=== PATIENT | female | born 1990 | race African-American/Black ===

== ENCOUNTER 2016-10-01 07:16 | Emergency (ER) | payer BC, OTHER ==
[~2016-10-01] VITALS: Ht 160 cm; Wt 72.6 kg
[~2016-10-01 07:16] MED LIST: METH-37 PO; TRAM-29 PO
[2016-10-01 07:32] VITALS: BP 127/86
[2016-10-01] MEDS ORDERED: PRED10DR RIGHTEYE (07:59)
--- NOTE | 2016-10-01 07:59 | PHYS DOC ---
Past Medical History Past Medical History: No Pertinent History Past Surgical History: No Surgical History Alcohol Use: Occasionally Drug Use: None Adult General Chief Complaint Chief Complaint: EYE PROBLEMS HPI HPI 25-year-old female who states she had some right-sided eye pain and irritation after she used a new contact solution coach cleaner that had some peroxide solution and then yesterday around 3 PM. She then washed out multiple times throughout the day and awoke today with some mild drainage and still pain to her right eye. She states she has normal vision in her right eye that is using glasses now as her contacts hurt her eye. She denies any other complaints at this time. Review of Systems Review of Systems Constitutional: Denies fever or chills [] Eyes: Denies change in visual acuity, has redness, has eye pain [] HENT: Denies nasal congestion or sore throat [] Respiratory: Denies cough or shortness of breath [] Cardiovascular: No additional information not addressed in HPI [] GI: Denies abdominal pain, nausea, vomiting, bloody stools or diarrhea [] : Denies dysuria or hematuria [] Musculoskeletal: Denies back pain or joint pain [] Integument: Denies rash or skin lesions [] Neurologic: Denies headache, focal weakness or sensory changes [] Endocrine: Denies polyuria or polydipsia [] Current Medications Current Medications Current Medications Medications (Trade) Dose Ordered Sig/Amaury Start Time Stop Time Status Last Admin Dose Admin Tetracaine HCl (Tetracaine) 40 drop STK-MED ONCE 10/01/16 08:16 10/01/16 08:17 DC Allergies Allergies Allergies Coded Allergies Type Severity Reaction Last Updated Verified No Known Drug Allergies 11/20/15 No Physical Exam Physical Exam Constitutional: Well developed, well nourished, no acute distress, non-toxic appearance. [] HENT: Normocephalic, atraumatic, bilateral external ears normal, oropharynx moist, no oral exudates, nose normal. [] Eyes: PERRLA, EOMI, right sided conjunctiva appears irritated consistent with a conjunctivitis, no discharge. [] Neck: Normal range of motion, no tenderness, supple, no stridor. [] Cardiovascular:Heart rate regular rhythm, no murmur [] Lungs & Thorax: Bilateral breath sounds clear to auscultation [] Abdomen: Bowel sounds normal, soft, no tenderness, no masses, no pulsatile masses. [] Skin: Warm, dry, no erythema, no rash. [] Back: No tenderness, no CVA tenderness. [] Extremities: No tenderness, no cyanosis, no clubbing, ROM intact, no edema. [] Neurologic: Alert and oriented X 3, normal motor function, normal sensory function, no focal deficits noted. [] Psychologic: Affect normal, judgement normal, mood normal. [] Current Patient Data Vital Signs Vital Signs Date Time Temp Pulse Resp B/P Pulse Ox O2 Delivery O2 Flow Rate FiO2 10/01/16 07:32 97.8 67 16 98 Room Air 97.8 EKG EKG [] Radiology/Procedures Radiology/Procedures [] Course & Med Decision Making Course & Med Decision Making Pertinent Labs and Imaging studies reviewed. (See chart for details) 25-year-old female has physical exam findings consistent with a chemical conjunctivitis. Her visual acuity was normal. The pH of her eye was closed to 7.0 was checked on pH paper. Be prescribing her a course of steroid drops as well as saline drops for the next 5 days and instructing her to now her contact lenses for the next several days as well. Pt was complaining of significant eye pain and one drop of tetracaine was instilled in the eye with mild relief. She was discharged to follow up closely with an eye doctor in the next two days if her symptoms do not improve. Dragon Disclaimer Dragon Disclaimer This electronic medical record was generated, in whole or in part, using a voice recognition dictation system. Departure Departure Impression: Primary Impression: Chemical conjunctivitis of right eye Disposition: 01 HOME, SELF-CARE Admitting Physician: Other Condition: STABLE Referrals: VERITO HERRERA (PCP) Patient Instructions: Conjunctivitis, Chemical, [id number] Additional Instructions: Please use your drops as prescribed and discontinue contact lens use for the next several days. Continue to use warm compresses to the eye. Follow up with an eye doctor if your pain or redness persists for the next several days despite using drops. Scripts Eye Lubricant Combination No.1 (Freshkote)15 Ml Drops1 Drop RIGHTEYE TID #1 ML Ref 0 NS For 5 days Prov:ALIZA BENDER DO 10/01/16 Prednisolone Acetate (Omnipred)10 Ml Drops.susp1 Drop RIGHTEYE TID #1 ML Ref 1 Prov:ALIZA BENDER DO 10/01/16 ALIZA BENDER DO Oct 01, 2016 07:59
[2016-10-01] MEDS ORDERED: EYE15DRO RIGHTEYE (08:10)
[2016-10-01] MEDS ORDERED: TETRACAINE 0.5% OPHTH SOLUTION 4ML BOTTLE. ONE (08:16)
== END 2016-10-01 08:23 | disposition home or self-care (01) ==
LOC: ER 07:16
DX: H10.211 Acute toxic conjunctivitis, right eye (principal)
CPT/HCPCS: 99283

== ENCOUNTER 2018-07-21 13:21 | Emergency (ER) | payer SELFPAY ==
[~2018-07-21] VITALS: Ht 160 cm; Wt 67.1 kg
[~2018-07-21 13:21] MED LIST changes: +EYE15DRO RIGHTEYE; +PRED10DR RIGHTEYE; -TRAM-29 PO; +TRAM-48 PO
[2018-07-21 13:44] VITALS: BP 106/68
--- NOTE | 2018-07-21 14:26 | PHYS DOC ---
Past Medical History Past Medical History: Anxiety Past Surgical History: No Surgical History Alcohol Use: Occasionally Drug Use: None Adult General Chief Complaint Chief Complaint: BACK INJURY HPI HPI Patient is a 27 year old female presented to ER today for evaluation of back pain, rib pain on the left side after she fell down 12 steps 3 days ago while carrying grocery. She denies any head or neck injury, no loss of consciousness. Patient denies any bowel or bladder incontinence. Patient denies any numbness or weakness in her extremities. Patient said the pain getting worse so she came in today for evaluation. She denies any abdominal pain, no nausea vomiting. Review of Systems Review of Systems Constitutional: Denies fever or chills [] Eyes: Denies change in visual acuity, redness, or eye pain [] HENT: Denies nasal congestion or sore throat [] Respiratory: Denies cough or shortness of breath [] Cardiovascular: No additional information not addressed in HPI [] GI: Denies abdominal pain, nausea, vomiting, bloody stools or diarrhea [] : Denies dysuria or hematuria [] Musculoskeletal: positive for back pain no joint pain [] Integument: Denies rash or skin lesions [] Neurologic: Denies headache, focal weakness or sensory changes [] Endocrine: Denies polyuria or polydipsia [] All other systems were reviewed and found to be within normal limits, except as documented in this note. Current Medications Current Medications Current Medications Medications (Trade) Dose Ordered Sig/[facility] Start Time Stop Time Status Last Admin Dose Admin Acetaminophen/ Hydrocodone Bitart (Lortab 5/325) 2 tab 1X ONCE 07/21/18 14:30 07/21/18 14:31 DC 07/21/18 14:58 2 TAB Allergies Allergies Allergies Coded Allergies Type Severity Reaction Last Updated Verified No Known Drug Allergies 11/20/15 No Physical Exam Physical Exam Constitutional: Well developed, well nourished, no acute distress, non-toxic appearance. [] HENT: Normocephalic, atraumatic, bilateral external ears normal, oropharynx moist, no oral exudates, nose normal. [] Eyes: PERRLA, EOMI, conjunctiva normal, no discharge. [] Neck: Normal range of motion, no tenderness, supple, no stridor. [] Cardiovascular:Heart rate regular rhythm, no murmur [] Lungs & Thorax: Bilateral breath sounds clear to auscultation [] Abdomen: Bowel sounds normal, soft, no tenderness, no masses, no pulsatile masses. [] Skin: Warm, dry, no erythema, no rash. [] Back: tenderness on right side at L2/L3 AREA, T5/T7 AREA , NO BONY STEP OFF, no CVA tenderness. [] Extremities: No tenderness, no cyanosis, no clubbing, ROM intact, no edema. [] Neurologic: Alert and oriented X 3, normal motor function, normal sensory function, no focal deficits noted. [] Psychologic: Affect normal, judgement normal, mood normal. [] Current Patient Data Vital Signs Vital Signs Date Time Temp Pulse Resp B/P (MAP) Pulse Ox O2 Delivery O2 Flow Rate FiO2 07/21/18 14:58 16 99 Room Air 07/21/18 13:44 97.9 71 106/68 (81) 97.9 EKG EKG [] Radiology/Procedures Radiology/Procedures [] [address] [place] [address] IMAGING REPORT Signed PATIENT: SKY ESCOBEDO ACCOUNT: [id number] : 1990 LOCATION: ER AGE: 27 SEX: F EXAM STATUS: REG ER ORD. PHYSICIAN: TIEN RIBEIRO DO REASON: FELL DOWN 12 STAIRS 3 DAYS AGO, LANDED ON HER BACK, HAVING BACK PAIN. PROCEDURE: LUMBAR SPINE MIN 4V Thoracic spine, 3 views, 07/21/2018: HISTORY: Fall, pain There is a mild left convexity thoracic scoliosis. There is a slight superior endplate deformity at T6 which was not evident on the 11/12/2015 exam. The thoracic vertebral heights are otherwise well-maintained. The paraspinous soft tissues are unremarkable. IMPRESSION: Slight superior endplate deformity at T6 which is new since 11/12/2015. Lumbar spine, 5 views, 07/21/2018: The lumbar vertebral heights and intervertebral disc spaces are well-maintained. There is a slightly displaced fracture of the right transverse process at L3. Lucencies projected over some of the other transverse processes appear to be due to overlying bowel. No other definite fracture or dislocation is evident. IMPRESSION: Fracture of the right transverse process at L3. Electronically signed by: Eyal Smith MD (07/21/2018 3:02 PM) [facility] DICTATED and SIGNED BY: EYAL SMITH MD DATE: 07/21/18 9739 Course & Med Decision Making Course & Med Decision Making Pertinent Labs and Imaging studies reviewed. (See chart for details) [] Dragon Disclaimer Dragon Disclaimer This electronic medical record was generated, in whole or in part, using a voice recognition dictation system. Departure Departure Impression: Primary Impression: T6 vertebral fracture Additional Impression: Closed L3 vertebral fracture Disposition: HOME, SELF-CARE Condition: STABLE Referrals: LOR PALMA MD PLEASE CALL THIS NEUROSURGEON NEXT WEEK FOR FOLLOW UP OF YOUR BACK FRACTURE. Patient Instructions: Back, Compression Fracture Scripts Cyclobenzaprine Hcl (CYCLOBENZAPRINE HCL) 10 Mg Tablet 10 MG PO TID PRN for MUSCLE SPASMS, #20 TAB Prov: TIEN RIBEIRO DO 07/21/18 Hydrocodone/Apap 5-325 (NORCO 5-325 TABLET) 1 Each Tablet 1 TAB PO PRN Q6HRS PRN for PAIN, #15 TAB 0 Refills Prov: TIEN RIBEIRO DO 07/21/18 Problem Qualifiers TIEN RIBEIRO DO Jul 21, 2018 14:26
[2018-07-21] MEDS ORDERED: HYDROcodone/APAP 5/325MG 1 TAB TABLET PO ONE (14:30)
--- NOTE | 2018-07-21 15:01 | RAD ---
Left RIBS with chest, 3 views, 07/21/2018: HISTORY: Fall, rib and back pain No left rib fracture is identified. There is no evidence of underlying pneumothorax, hemothorax or pulmonary infiltrate. The heart size is normal. IMPRESSION: No significant left rib abnormality is detected. Electronically signed by: Eyal Smith MD (07/21/2018 2:57 PM) [facility]
--- NOTE | 2018-07-21 15:06 | RAD ---
Thoracic spine, 3 views, 07/21/2018: HISTORY: Fall, pain There is a mild left convexity thoracic scoliosis. There is a slight superior endplate deformity at T6 which was not evident on the 11/12/2015 exam. The thoracic vertebral heights are otherwise well-maintained. The paraspinous soft tissues are unremarkable. IMPRESSION: Slight superior endplate deformity at T6 which is new since 11/12/2015. Lumbar spine, 5 views, 07/21/2018: The lumbar vertebral heights and intervertebral disc spaces are well-maintained. There is a slightly displaced fracture of the right transverse process at L3. Lucencies projected over some of the other transverse processes appear to be due to overlying bowel. No other definite fracture or dislocation is evident. IMPRESSION: Fracture of the right transverse process at L3. Electronically signed by: Eyal Smith MD (07/21/2018 3:02 PM) [facility]
[2018-07-21] MEDS ORDERED: CYCL10TA2 PO (16:08)
[2018-07-21] MEDS ORDERED: HYDR-3164 PO (16:08)
== END 2018-07-21 16:33 | disposition home or self-care (01) ==
LOC: ER 13:21
DX: S32.038A Other fracture of third lumbar vertebra, initial encounter for closed fracture (principal); S22.058A Other fracture of T5-T6 vertebra, initial encounter for closed fracture; R07.81 Pleurodynia; F41.9 Anxiety disorder, unspecified; W10.8XXA Fall (on) (from) other stairs and steps, initial encounter; Y93.89 Activity, other specified; Y92.89 Other specified places as the place of occurrence of the external cause; Y99.8 Other external cause status
CPT/HCPCS: 71101; 72072; 72110; 99283

== ENCOUNTER 2018-11-25 16:54 | Emergency (ER) | payer SELFPAY ==
[~2018-11-25] VITALS: Ht 160 cm; Wt 68.0 kg
[~2018-11-25 16:54] MED LIST changes: +CYCL10TA2 PO; +HYDR-3164 PO
[2018-11-25 17:35] LABS: BILIRUBIN,URINE NEGATIVE (NEG); CLARITY,URINE CLEAR; COLOR,URINE YELLOW; NITRITE,URINE NEGATIVE (NEG); PH,URINE 5.5; PROTEIN,URINE NEGATIVE (NEG-TRACE)
[2018-11-25 17:40] LABS: RBC,URINE 0 /HPF (0-2)
[2018-11-25 17:41] LABS: BACTERIA,URINE 0 /HPF (0-FEW); SQUAMOUS EPITHELIAL CELL,UR MOD /LPF
[2018-11-25] MEDS ORDERED: KETOROLAC 60 MG/2 ML VIAL. IM ONE (18:00)
--- NOTE | 2018-11-25 18:12 | RAD ---
EXAM: Lumbar spine, 3 views; thoracic spine, 3 views. HISTORY: Fall. Pain. COMPARISON: 07/21/2018 FINDINGS: Lumbar spine: 3 views of the lumbar spine are obtained. There has been no change or slight interval healing of mildly displaced fractures of the left L1 and bilateral L2 and L3 transverse processes. No new fracture is seen. There is no listhesis. The vertebral martin are normal in height. There are multiple pelvic phleboliths. Thoracic spine: 3 views of the thoracic spine are obtained. There is no listhesis. The vertebral bodies are normal in height and the disc spaces are preserved. IMPRESSION: 1. No acute thoracic finding. 2. Unchanged or mildly healing lumbar transverse process fractures. These are seen on the prior study dated 07/21/2018. Electronically signed by: Maria G Greenberg MD (11/25/2018 6:09 PM) [facility]
[2018-11-25] MEDS ORDERED: METH4TAB2 PO (18:35)
[2018-11-25] MEDS ORDERED: HYDR-3164 PO (18:36)
--- NOTE | 2018-11-25 18:36 | PHYS DOC ---
Past Medical History Past Medical History: Anxiety, Other Additional Past Medical Histor: T9/L3 FX Past Surgical History: No Surgical History Alcohol Use: Occasionally Drug Use: None Adult General Chief Complaint Chief Complaint: BACK PAIN OR INJURY HPI HPI Patient is a 27 year old female who presents with back pain. The patient does have a history of spinal fractures. She states that she saw a neurosurgeon once but never followed up because it felt like it was improving. She was moving a mattress when the pain occurred. She states that most of the pain is over her he denies spontaneous loss of bowel or bladder, saddle numbness or foot drop. Review of Systems Review of Systems Constitutional: Denies fever or chills [] Respiratory: Denies cough or shortness of breath [] Cardiovascular: No additional information not addressed in HPI [] GI: Denies abdominal pain, nausea, vomiting, bloody stools or diarrhea [] : Denies dysuria or hematuria [] Musculoskeletal: See history of present illness Integument: Denies rash or skin lesions [] Neurologic: Denies headache, focal weakness or sensory changes [] Endocrine: Denies polyuria or polydipsia [] All other systems were reviewed and found to be within normal limits, except as documented in this note. Current Medications Current Medications Current Medications Medications (Trade) Dose Ordered Sig/[facility] Start Time Stop Time Status Last Admin Dose Admin Ketorolac Tromethamine (Toradol Im) 60 mg 1X ONCE 11/25/18 18:00 11/25/18 18:01 DC 11/25/18 18:06 60 MG Allergies Allergies Allergies Coded Allergies Type Severity Reaction Last Updated Verified No Known Drug Allergies 11/20/15 No Physical Exam Physical Exam Constitutional: Well developed, well nourished, no acute distress, non-toxic appearance. [] Cardiovascular:Heart rate regular rhythm, no murmur [] Lungs & Thorax: Bilateral breath sounds clear to auscultation [] Abdomen: Bowel sounds normal, soft, no tenderness, no masses, no pulsatile masses. [] Skin: Warm, dry, no erythema, no rash. [] Back: tenderness to left SI joint, no gross deformities or step-offs, no CVA tenderness. [] Extremities: No tenderness, no cyanosis, no clubbing, ROM intact, no edema. [] Neurologic: Alert and oriented X 3, normal motor function, normal sensory function, no focal deficits noted. [] Psychologic: Affect normal, judgement normal, mood normal. [] Current Patient Data Vital Signs Vital Signs Date Time Temp Pulse Resp B/P (MAP) Pulse Ox O2 Delivery O2 Flow Rate FiO2 11/25/18 17:02 98.3 89 20 109/70 (83) 97 Room Air 98.3 Lab Values Laboratory Tests Test 11/25/18 17:14 11/25/18 17:25 Urine Collection Type Unknown Urine Color Yellow Urine Clarity Clear Urine pH 5.5 Urine Specific Walker >=1.030 Urine Protein Negative mg/dL (NEG-TRACE) Urine Glucose (UA) Negative mg/dL (NEG) Urine Ketones (Stick) Trace mg/dL (NEG) Urine Blood Negative (NEG) Urine Nitrite Negative (NEG) Urine Bilirubin Negative (NEG) Urine Urobilinogen Dipstick 1.0 mg/dL (0.2 mg/dL) Urine Leukocyte Esterase Negative (NEG) Urine RBC 0 /HPF (0-2) Urine WBC 1-4 /HPF (0-4) Urine Squamous Epithelial Cells Mod /LPF Urine Bacteria 0 /HPF (0-FEW) Urine Mucus Mod /LPF POC Urine HCG, Qualitative Hcg negative (Negative) EKG EKG [] Radiology/Procedures Radiology/Procedures [] PATIENT: SKY ESCOBEDO ACCOUNT: [id number] : 1990 LOCATION: ER AGE: 27 SEX: F EXAM STATUS: REG ER ORD. PHYSICIAN: LAW KENNEDY APRN REASON: hurt back lifting mattress PROCEDURE: THORACIC SPINE 3V EXAM: Lumbar spine, 3 views; thoracic spine, 3 views. HISTORY: Fall. Pain. COMPARISON: 07/21/2018 FINDINGS: Lumbar spine: 3 views of the lumbar spine are obtained. There has been no change or slight interval healing of mildly displaced fractures of the left L1 and bilateral L2 and L3 transverse processes. No new fracture is seen. There is no listhesis. The vertebral martin are normal in height. There are multiple pelvic phleboliths. Thoracic spine: 3 views of the thoracic spine are obtained. There is no listhesis. The vertebral bodies are normal in height and the disc spaces are preserved. IMPRESSION: 1. No acute thoracic finding. 2. Unchanged or mildly healing lumbar transverse process fractures. These are seen on the prior study dated 07/21/2018. Electronically signed by: Mraia G To MD (11/25/2018 6:09 PM) [facility] DICTATED and SIGNED BY: MARIA G TO MD DATE: 11/25/18 1803 Course & Med Decision Making Course & Med Decision Making Pertinent Labs and Imaging studies reviewed. (See chart for details) []The patient was given Toradol in the ED. Dragon Disclaimer Dragon Disclaimer This electronic medical record was generated, in whole or in part, using a voice recognition dictation system. Departure Departure Impression: Primary Impression: Back pain Additional Impression: Sciatica Disposition: HOME, SELF-CARE Condition: STABLE Referrals: UNKNOWN PCP NAME (PCP) Patient Instructions: Back Pain, Adult Additional Instructions: Take the medication as directed. Follow-up with neurosurgery for further management of your spinal fractures. X-ray does show that these are unchanged and showing some signs of healing. Scripts Hydrocodone/Apap 5-325 (NORCO 5-325 TABLET) 1 Each Tablet 1 TAB PO PRN Q6HRS PRN for PAIN, #10 TAB 0 Refills Prov: LAW KENNEDY APRN 11/25/18 Methylprednisolone (MEDROL) 4 Mg Tab.ds.pk 1 PKG PO UD for sciatica, #1 PKG Prov: LAW KENNEDY APRN 11/25/18 Problem Qualifiers LAW KENNEDY APRN November 25, 2018 18:36
[2018-11-25 18:44] VITALS: BP 119/73
== END 2018-11-25 18:44 | disposition home or self-care (01) ==
LOC: ER 16:54
DX: M54.42 Lumbago with sciatica, left side (principal); M54.6 Pain in thoracic spine; F41.9 Anxiety disorder, unspecified
CPT/HCPCS: 72072; 72100; 81001; 81025; 96372; 99285; J1885

== ENCOUNTER 2019-07-18 14:48 | Emergency (ER) | payer BC, MEDICAID ==
[~2019-07-18] VITALS: Ht 160 cm; Wt 72.6 kg
[~2019-07-18 14:48] MED LIST changes: +METH4TAB2 PO
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
[2019-07-18] MEDS ORDERED: diphenhydrAMINE 50 MG/ML VIAL IVP ONE (16:00)
[2019-07-18] MEDS ORDERED: METOCLOPRAMIDE HCL 10 MG/2 ML VIAL. IVP ONE (16:00)
[2019-07-18] MEDS ORDERED: KETOROLAC 15 MG/ML VIAL. IV ONE (16:00)
[2019-07-18] MEDS ORDERED: IV NORMAL SALINE 1000ML BAG 1,000 ML IV ONE (16:00)
[2019-07-18 16:24] LABS: BASO % 1 % (0-3); EOS # 0.1 x10^3/uL (0.0-0.7); EOS % 1 % (0-3); HEMATOCRIT 39.2 % (36.0-47.0); HEMOGLOBIN 12.5 g/dL (12.0-15.5); LYMPH # 2.2 x10^3/uL (1.0-4.8); LYMPH % 24 % (24-48); MEAN CORPUSCULAR HEMOGLOBIN 28 pg (25-35); MEAN CORPUSCULAR HGB CONC 32 g/dL (31-37); MEAN CORPUSCULAR VOLUME 87 fL (79-100); MONO # 0.7 x10^3/uL (0.0-1.1); MONO % 7 % (0-9); NEUT # 6.1 x10^3/uL (1.8-7.7); NEUT % 67 % (31-73); PLATELET COUNT 254 x10^3/uL (140-400); RED BLOOD COUNT 4.51 x10^6/uL (3.50-5.40); RED CELL DISTRIBUTION WIDTH 15.2 % (11.5-14.5); WHITE BLOOD COUNT 9.1 x10^3/uL (4.0-11.0)
[2019-07-18 16:41] LABS: CALCIUM 8.6 mg/dL (8.5-10.1); GFR 78.8; POTASSIUM 3.8 mmol/L (3.5-5.1)
--- NOTE | 2019-07-18 17:50 | RAD ---
RS Compliance Statement: One or more of the following individualized dose reduction techniques were utilized for this examination: 1. Automated exposure control 2. Adjustment of the mA and/or kV according to patient size 3. Use of iterative reconstruction technique CT HEAD WITHOUT CONTRAST History: Headache, history of prior craniotomy. Comparison: None. Procedure: Axial images are obtained of the head from the skull base through the vertex without IV contrast. Findings: The ventricles and sulci are normal for the patient's age. No mass-effect, midline shift, hemorrhage, extra-axial fluid collection, or obvious acute infarction is identified. Basilar cisterns are patent. Question minimal anterior inferior right frontal lobe encephalomalacia. Bone windows demonstrate no acute calvarial abnormality. There is old right frontotemporal craniotomy. There is a benign calcification of the upper right frontal scalp. The visualized paranasal sinuses are clear. Mastoid air cells are well aerated. IMPRESSION: No acute intracranial abnormality. Electronically signed by: Corby Lorenzo MD (07/18/2019 5:47 PM) [id number]
[2019-07-18 18:20] VITALS: BP 98/59
== END 2019-07-18 18:20 | disposition home or self-care (01) ==
LOC: ER 14:48
DX: O26.899 Other specified pregnancy related conditions, unspecified trimester (principal); G43.909 Migraine, unspecified, not intractable, without status migrainosus; H53.8 Other visual disturbances; H92.01 Otalgia, right ear; F41.9 Anxiety disorder, unspecified; Z98.890 Other specified postprocedural states; Z3A.01 Less than 8 weeks gestation of pregnancy
CPT/HCPCS: 36415; 70450; 80048; 81025; 85025; 96374; 96375; 99285; J1200; J2765; J7030

== ENCOUNTER 2019-12-05 21:39 | Emergency (ER) | payer BC, MEDICAID ==
[~2019-12-05] VITALS: Ht 160 cm; Wt 70.0 kg
[2019-12-05] MEDS ORDERED: IV NORMAL SALINE 1000ML BAG 1,000 ML IV SCH (22:00)
[2019-12-05 22:30] LABS: BASO % 0 % (0-3); EOS % 0 % (0-3); HEMATOCRIT 37.4 % (36.0-47.0); LYMPH # 1.1 x10^3/uL (1.0-4.8); LYMPH % 7 % (24-48); MEAN CORPUSCULAR HEMOGLOBIN 27 pg (25-35); MEAN CORPUSCULAR HGB CONC 32 g/dL (31-37); MEAN CORPUSCULAR VOLUME 86 fL (79-100); MONO # 0.3 x10^3/uL (0.0-1.1); MONO % 2 % (0-9); NEUT # 14.1 x10^3/uL (1.8-7.7); NEUT % 90 % (31-73); PLATELET COUNT 244 x10^3/uL (140-400); RED BLOOD COUNT 4.37 x10^6/uL (3.50-5.40); RED CELL DISTRIBUTION WIDTH 14.3 % (11.5-14.5); WHITE BLOOD COUNT 15.6 x10^3/uL (4.0-11.0)
[2019-12-05 22:31] LABS: BILIRUBIN,URINE NEGATIVE (NEG); CLARITY,URINE CLEAR; NITRITE,URINE NEGATIVE (NEG); PROTEIN,URINE NEGATIVE (NEG-TRACE); UROBILINOGEN,URINE 0.2 mg/dL (0.2 mg/dL)
[2019-12-05 22:42] LABS: COLOR,URINE YELLOW
[2019-12-05 22:46] LABS: BACTERIA,URINE MANY /HPF (0-FEW); RBC,URINE 0 /HPF (0-2); SQUAMOUS EPITHELIAL CELL,UR MANY /LPF; WBC,URINE OCC /HPF (0-4)
[2019-12-05 22:49] LABS: CALCIUM 8.5 mg/dL (8.5-10.1); CREATININE 1.1 mg/dL (0.6-1.0); GFR 70.6; POTASSIUM 3.9 mmol/L (3.5-5.1)
[2019-12-05 22:51] LABS: INFLUENZA A PATIENT NEGATIVE (NEGATIVE); INFLUENZA B PATIENT NEGATIVE (NEGATIVE)
[2019-12-05 22:54] LABS: ALBUMIN 3.4 g/dL (3.4-5.0); ALBUMIN/GLOBULIN RATIO 0.9 (1.0-1.7); TOTAL BILIRUBIN 0.1 mg/dL (0.2-1.0); TOTAL PROTEIN 7.1 g/dL (6.4-8.2)
--- NOTE | 2019-12-05 23:02 | RAD ---
INDICATION: Shortness of breath COMPARISON: July 21, 2018 FINDINGS: Single view of chest obtained. Hypoexpanded exam. Cardiac silhouette prominent in size but likely exaggerated by portable technique. Left lung base is poorly evaluated given the lack of lateral view and overlying cardiac silhouette obscuring. No definite consolidation elsewhere in the lungs. IMPRESSION: * Left lung base is obscured by the overlying cardiac silhouette but no definite consolidation elsewhere the lungs. Electronically signed by: Sanford Long MD (12/05/2019 10:59 PM) [id number]
[2019-12-05 23:09] LABS: % LYMPHS 7 % (24-48); % SEGS 93 % (35-66)
[2019-12-05 23:26] LABS: PLT ESTIMATE ADEQUATE (ADEQUATE); TOXIC GRANULATION SLIGHT
[2019-12-05 23:51] VITALS: BP 129/80
[2019-12-06] MEDS ORDERED: AZIT250T PO (00:07)
--- NOTE | 2019-12-06 00:07 | PHYS DOC ---
Past Medical History Past Medical History: Anxiety, Other Additional Past Medical Histor: T9/L3 FX, SKULL FX Past Surgical History: No Surgical History Additional Past Surgical Histo: SKULL FX 07/2018, CRANIOTOMY 07/2018 Smoking Status: Never Smoker Alcohol Use: None Drug Use: None General Adult EDM: Chief Complaint: DYSPNEA/RESPIRATOY DISTRESS HPI: HPI: Patient is a 28 year old female who presents with complaint of productive cough and shortness of breath for the last couple of weeks. She denies any chest pain. She also denies any fever. She states the cough is been productive of green sputum. Patient states that shortness of breath is worsened with exertion. She denies any abdominal pain, nausea, vomiting or diarrhea. [] Review of Systems: Review of Systems: Constitutional: Denies fever or chills. [] Respiratory: Complains of cough and shortness of breath. [] Cardiovascular: Denies chest pain or edema. [] GI: Denies abdominal pain, nausea, vomiting or diarrhea. [] Neurologic: Denies headache, focal weakness or sensory changes. [] A full 10 point review of systems has been reviewed and is otherwise negative. Heart Score: Risk Factors: Risk Factors: DM, Current or recent (<one month) smoker, HTN, HLP, family history of CAD, obesity. Risk Scores: Score 0 - 3: 2.5% MACE over next 6 weeks - Discharge Home Score 4 - 6: 20.3% MACE over next 6 weeks - Admit for Clinical Observation Score 7 - 10: 72.7% MACE over next 6 weeks - Early Invasive Strategies Current Medications: Current Medications Medications (Trade) Dose Ordered Sig/Amaury Start Time Stop Time Status Last Admin Dose Admin Lorazepam (Ativan Inj) 1 mg 1X ONCE 12/05/19 22:30 12/05/19 22:31 DC 12/05/19 22:33 1 MG Sodium Chloride 1,000 ml @ 1,000 mls/hr Q1H 12/05/19 22:00 12/05/19 22:59 DC 12/05/19 22:24 1,000 MLS/HR Allergies: Allergies: Allergies Coded Allergies Type Severity Reaction Last Updated Verified No Known Drug Allergies 11/20/15 No Physical Exam: PE: Constitutional: Well developed, well nourished, no acute distress, non-toxic appearance. [] HENT: Normocephalic, atraumatic, bilateral external ears normal, oropharynx moist, no oral exudates, nose normal. [] Eyes: PERRLA, EOMI, conjunctiva normal, no discharge. [] Neck: Normal range of motion, no tenderness, supple. [] Cardiovascular: Regular rate and rhythm [] Lungs & Thorax: Bilateral breath sounds clear to auscultation [] Abdomen: Bowel sounds normal, soft, no tenderness. [] Skin: Warm, dry, no erythema, no rash. [] Extremities: No tenderness, no cyanosis, no clubbing, ROM intact, no edema. [] Neurologic: Alert and oriented X 3, no focal deficits noted. [] Current Patient Data: Labs: Laboratory Tests Test 12/05/19 22:09 12/05/19 22:24 White Blood Count 15.6 x10^3/uL (4.0-11.0) H Red Blood Count 4.37 x10^6/uL (3.50-5.40) Hemoglobin 12.0 g/dL (12.0-15.5) Hematocrit 37.4 % (36.0-47.0) Mean Corpuscular Volume 86 fL (79-100) Mean Corpuscular Hemoglobin 27 pg (25-35) Mean Corpuscular Hemoglobin Concent 32 g/dL (31-37) Red Cell Distribution Width 14.3 % (11.5-14.5) Platelet Count 244 x10^3/uL (140-400) Neutrophils (%) (Auto) 90 % (31-73) H Lymphocytes (%) (Auto) 7 % (24-48) L Monocytes (%) (Auto) 2 % (0-9) Eosinophils (%) (Auto) 0 % (0-3) Basophils (%) (Auto) 0 % (0-3) Neutrophils # (Auto) 14.1 x10^3/uL (1.8-7.7) H Lymphocytes # (Auto) 1.1 x10^3/uL (1.0-4.8) Monocytes # (Auto) 0.3 x10^3/uL (0.0-1.1) Eosinophils # (Auto) 0.0 x10^3/uL (0.0-0.7) Basophils # (Auto) 0.0 x10^3/uL (0.0-0.2) Segmented Neutrophils % 93 % (35-66) H Lymphocytes % 7 % (24-48) L Toxic Granulation Slight Platelet Estimate Adequate (ADEQUATE) D-Dimer (Yue) < 0.27 ug/mlFEU Urine Collection Type Unknown Urine Color Yellow Urine Clarity Clear Urine pH 7.0 (<5.0-8.0) Urine Specific [place] >=1.030 (1.000-1.030) Urine Protein Negative mg/dL (NEG-TRACE) Urine Glucose (UA) >=1000 mg/dL (NEG) Urine Ketones (Stick) Negative mg/dL (NEG) Urine Blood Negative (NEG) Urine Nitrite Negative (NEG) Urine Bilirubin Negative (NEG) Urine Urobilinogen Dipstick 0.2 mg/dL (0.2 mg/dL) Urine Leukocyte Esterase Negative (NEG) Urine RBC 0 /HPF (0-2) Urine WBC Occ /HPF (0-4) Urine Squamous Epithelial Cells Many /LPF Urine Bacteria Many /HPF (0-FEW) Sodium Level 139 mmol/L (136-145) Potassium Level 3.9 mmol/L (3.5-5.1) Chloride Level 104 mmol/L (98-107) Carbon Dioxide Level 26 mmol/L (21-32) Anion Gap 9 (6-14) Blood Urea Nitrogen 23 mg/dL (7-20) H Creatinine 1.1 mg/dL (0.6-1.0) H Estimated GFR (Cockcroft-Gault) 70.6 BUN/Creatinine Ratio 21 (6-20) H Glucose Level 237 mg/dL (70-99) H Calcium Level 8.5 mg/dL (8.5-10.1) Total Bilirubin 0.1 mg/dL (0.2-1.0) L Aspartate Amino Transferase (AST) 18 U/L (15-37) Alanine Aminotransferase (ALT) 42 U/L (14-59) Alkaline Phosphatase 111 U/L (46-116) Troponin I Quantitative < 0.017 ng/mL (0.000-0.055) GI-Bsf-N-Type Natriuretic Peptide 68 pg/mL (0-124) Total Protein 7.1 g/dL (6.4-8.2) Albumin 3.4 g/dL (3.4-5.0) Albumin/Globulin Ratio 0.9 (1.0-1.7) L Influenza Type A Antigen Negative (NEGATIVE) Influenza Type B Antigen Negative (NEGATIVE) POC Urine HCG, Qualitative Hcg negative (Negative) Laboratory Tests 12/05/19 22:09 Laboratory Tests 12/05/19 22:09 Vital Signs: Vital Signs Date Time Temp Pulse Resp B/P (MAP) Pulse Ox O2 Delivery O2 Flow Rate FiO2 12/05/19 22:30 67 18 118/63 (81) 97 Room Air 12/05/19 22:00 98.2 98.2 EKG: EKG: [] Radiology/Procedures: Radiology/Procedures: [] Impression: PROCEDURE: PORTABLE CHEST 1V INDICATION: Shortness of breath COMPARISON: July 21, 2018 FINDINGS: Single view of chest obtained. Hypoexpanded exam. Cardiac silhouette prominent in size but likely exaggerated by portable technique. Left lung base is poorly evaluated given the lack of lateral view and overlying cardiac silhouette obscuring. No definite consolidation elsewhere in the lungs. IMPRESSION: * Left lung base is obscured by the overlying cardiac silhouette but no definite consolidation elsewhere the lungs. Electronically signed by: Sanford Long MD (12/05/2019 10:59 PM) [id number] Course & Med Decision Making: Course & Med Decision Making Pertinent Labs and Imaging studies reviewed. (See chart for details) [] Dragon Disclaimer: Dragon Disclaimer: This electronic medical record was generated, in whole or in part, using a voice recognition dictation system. Departure Departure Impression: Primary Impression: Acute bronchitis Qualified Codes: J20.9 - Acute bronchitis, unspecified Disposition: 01 HOME, SELF-CARE Condition: STABLE Referrals: UNKNOWN PCP NAME (PCP) Patient Instructions: Acute Bronchitis Scripts Azithromycin (ZITHROMAX) 250 Mg Tablet 1 PKG PO UD, #6 TAB Prov: RIVERA RUIZ Jr. DO 12/06/19 RIVERA RUIZ Jr. DO December 06, 2019 00:07
[2019-12-06] MEDS ORDERED: AZITHROMYCIN 250 MG TABLET. PO ONE (00:15)
== END 2019-12-06 00:25 | disposition home or self-care (01) ==
LOC: ER 21:39
DX: J20.9 Acute bronchitis, unspecified (principal)
CPT/HCPCS: 36415; 71045; 80053; 81001; 81025; 83880; 84484; 85007; 85025; 85379; 87070; 87086; 87804; 87880; 96374; 99285; J2060; J7030